=== PATIENT | male | born 1990 | race African-American/Black ===

== ENCOUNTER 2021-06-23 11:01 | Emergency (ER) | payer SELFPAY ==
[~2021-06-23] VITALS: Ht 182.9 cm; Wt 89.0 kg
[2021-06-23 11:20] VITALS: BP 158/121
[2021-06-23] MEDS ORDERED: KETOROLAC 30MG/ML VIAL IM ONE (12:30)
[2021-06-23] MEDS ORDERED: HYDROCODONE/ACETAMINOPHEN 5/325MG TABLET PO ONE (13:00)
[2021-06-23] MEDS ORDERED: ONDANSETRON 4MG ODT PO ONE (13:00)
[2021-06-23] MEDS ORDERED: IBUP-2029 MT (13:44)
[2021-06-23] MEDS ORDERED: HYDR-4001 MT (13:44)
== END 2021-06-23 14:43 | disposition home or self-care (01) ==
LOC: ER 11:28
DX: M54.59 Other low back pain (principal); G89.11 Acute pain due to trauma; V03.90XA Pedestrian on foot injured in collision with car, pick-up truck or van, unspecified whether traffic or nontraffic accident, initial encounter; Y93.89 Activity, other specified; Y92.488 Other paved roadways as the place of occurrence of the external cause
CPT/HCPCS: 72100; 96372; 99283; J1885; Q0162

== ENCOUNTER 2022-01-04 00:06 | Emergency (ER) | payer MEDICAID ==
[~2022-01-04] VITALS: Ht 180.3 cm; Wt 109.0 kg
[~2022-01-04 00:06] MED LIST: HYDR-4001 MT; IBUP-2029 MT
[2022-01-04 01:48] LABS: BASOPHILS % 0.9 % (0.0-2.0); EOSINOPHILS % 0.8 % (0.0-5.0); HEMATOCRIT. 40.6 % (42.0-52.0); HEMOGLOBIN. 13.8 g/dL (14.0-18.0); LYMPHOCYTES % 23.3 % (20.0-50.0); MEAN CORPUSCULAR HEMOGLOBIN 29.5 pg (28.0-32.0); MEAN CORPUSCULAR VOLUME 86.4 fL (80.0-94.0); MEAN PLATELET VOLUME 8.1 fl (7.4-10.4); MONOCYTES % 6.8 % (2.0-8.0); NEUTROPHILS % 68.2 % (40.0-76.0); PLATELET 361 x1000/uL (130-400); RED BLOOD CELL COUNT 4.69 mill/uL (4.7-6.1)
[2022-01-04 01:57] LABS: CHLORIDE 106 mEq/L (98-107)
[2022-01-04 02:04] LABS: *AMPHETAMINES SCREEN URINE NEGATIVE (NEGATIVE); *BARBITURATES SCREEN URINE NEGATIVE (NEGATIVE); *BENZODIAZEPINES SCREEN URINE NEGATIVE (NEGATIVE); *COCAINE SCREEN URINE NEGATIVE (NEGATIVE); CANNABINOID URINE SCREEN PRESUMTIVE POSITIVE (NEGATIVE); METHADONE URINE SCREEN NEGATIVE (NEGATIVE); OPIATES URINE SCREEN NEGATIVE (NEGATIVE); PHENCYCLIDINE URINE SCREEN NEGATIVE (NEGATIVE)
[2022-01-04 03:00] VITALS: BP 131/65
== END 2022-01-04 03:00 | disposition home or self-care (01) ==
LOC: ER 00:06
DX: I47.1 Supraventricular tachycardia (principal); Z88.0 Allergy status to penicillin
CPT/HCPCS: 36415; 71045; 80053; 80305; 83880; 84484; 85025; 85379; 99284

== ENCOUNTER 2022-08-23 23:31 | Emergency (ER) | payer SELFPAY ==
[~2022-08-23] VITALS: Ht 198.1 cm; Wt 116.0 kg
[2022-08-24 02:52] LABS: BASOPHILS % 0.6 % (0.0-2.0); EOSINOPHILS % 0.9 % (0.0-5.0); HEMATOCRIT. 40.4 % (42.0-52.0); HEMOGLOBIN. 13.6 g/dL (14.0-18.0); LYMPHOCYTES % 34.5 % (20.0-50.0); MEAN CORPUSCULAR VOLUME 86.1 fL (80.0-94.0); MEAN PLATELET VOLUME 7.9 fl (7.4-10.4); MONOCYTES % 6.5 % (2.0-8.0); NEUTROPHILS % 57.5 % (40.0-76.0); PLATELET 364 x1000/uL (130-400); RED BLOOD CELL COUNT 4.69 mill/uL (4.7-6.1); RED CELL DISTRIBUTION WIDTH 14.8 % (11.6-14.6)
[2022-08-24 02:53] LABS: CLARITY URINE CLEAR (CLEAR); COLOR URINE YELLOW (YELLOW); KETONES URINE TRACE (NEGATIVE); LEUKOCYTE ESTERASE URINE NEGATIVE (NEGATIVE); NITRITE URINE NEGATIVE (NEGATIVE); OCCULT BLOOD URINE NEGATIVE (NEGATIVE); PH URINE 6.5 (4.5-8.0); PROTEIN URINE NEGATIVE (NEGATIVE); SPECIFIC GRAVITY URINE 1.028 (1.005-1.030)
[2022-08-24 03:18] LABS: CHLORIDE 106 mEq/L (98-107)
[2022-08-24 05:06] VITALS: BP 125/80
[2022-08-24] MEDS ORDERED: CEPH500C2 MT (05:16)
== END 2022-08-24 05:30 | disposition home or self-care (01) ==
LOC: ER 23:31
DX: R00.2 Palpitations (principal); L73.9 Follicular disorder, unspecified; Z88.0 Allergy status to penicillin
CPT/HCPCS: 36415; 71045; 80053; 81003; 85025; 93005; 99285